=== PATIENT | female | born 2005 | race Caucasian/White ===

== ENCOUNTER 2023-07-28 18:00 | Emergency (ER) | payer SELFPAY ==
[~2023-07-28] VITALS: Ht 162.6 cm; Wt 63.5 kg
[2023-07-28 18:27] VITALS: BP_SYST 120; PULSE 96; RESP 18; TEMP 98.7; O2SAT 99
[2023-07-28] MEDS: KETOROLAC TROMETHAMINE 60 MG/2 ML VIAL IM ONE (19:41)
[2023-07-28] MEDS: carisoprodoL 350 MG TABLET PO SCH (19:41)
[2023-07-28 19:45] LABS: BILIRUBIN,URINE NEGATIVE (NEGATIVE); BLOOD, URINE 3+ (NEGATIVE); CLARITY/URINE SL CLOUDY (CLEAR); COLOR,URINE YELLOW (YELLOW); GLUCOSE,URINE NEGATIVE (NEGATIVE); KETONES,URINE NEGATIVE (NEGATIVE); LEUKOCYTE ESTERASE ,URINE TRACE (NEGATIVE); NITRITE, URINE NEGATIVE (NEGATIVE); PH,URINE 7.5 (5.0-8.0); PROTEIN URINE NEGATIVE (NEGATIVE)
[2023-07-28 20:05] LABS: BACTERIA,URINE FEW /HPF (None Seen)
[2023-07-28] MEDS ORDERED: SOM350 PO (20:32)
[2023-07-28] MEDS ORDERED: IBUP-1969 PO (20:32)
[2023-07-28 20:54] VITALS: BP_SYST 121; PULSE 91; RESP 18; TEMP 98.6; O2SAT 99
== END 2023-07-28 20:45 | disposition home or self-care (01) ==
LOC: SED 18:00
DX: S33.5XXA Sprain of ligaments of lumbar spine, initial encounter (principal); X58.XXXA Exposure to other specified factors, initial encounter; Y93.9 Activity, unspecified; Y92.89 Other specified places as the place of occurrence of the external cause; Y99.8 Other external cause status
CPT/HCPCS: 99284; 96374; 81001; 72100; 81025; J1885; 81000; 81015